=== PATIENT | male | born 1990 | race African-American/Black ===

== ENCOUNTER 2017-04-19 08:35 | Emergency (ER) | payer SELFPAY ==
[~2017-04-19] VITALS: Ht 165.1 cm; Wt 68.0 kg
[~2017-04-19 08:35] MED LIST: FLEXERIL PO; MOTRIN400 MG PO
== END 2017-04-19 09:49 | disposition home or self-care (01) ==
LOC: CFTX 08:35 → CED 08:35 → CFTX 09:00
DX: J06.9 Acute upper respiratory infection, unspecified (principal); R03.0 Elevated blood-pressure reading, without diagnosis of hypertension; J45.909 Unspecified asthma, uncomplicated; Z88.0 Allergy status to penicillin
CPT/HCPCS: 87651; 96372; 99283; J1885